=== PATIENT | male | born 1960 | race Caucasian/White ===

== ENCOUNTER → 2020-02-08 09:30 | Outpatient (CLI) | payer BC, MEDICAID, SELFPAY ==
[2020-02-08 13:09] LABS: Coronavirus 19 IgG Antibody Negative (Negative); Coronavirus 19 IgM Antibody Negative (Negative)
== END ==
PROVIDERS: Visit Provider Internal Medicine Gastroenterology
DX: Z01.818 Encounter for other preprocedural examination (principal)
CPT/HCPCS: 36415; 86328

== ENCOUNTER 2020-02-11 12:12 | Day surgery (SDC) | payer BC, MEDICAID, SELFPAY ==
[2020-02-06 11:03] VITALS: BMI 30.9
[2020-02-11] VITALS (10 sets, daily range): BP systolic 82–113; BP diastolic 49–74; PULSE 106–130; RESP 12–22; TEMP 36.1–36.7; O2SAT 94–100
--- NOTE | 2020-02-11 13:44 | P.PN_ITS ---
[facility] Anesthesia Checklist - Patient Identification Patient Identification: Arm Band - Structural Data Admitted From: Home Planned Operative Procedure/s: colonoscopy Consent for Planned Operative Procedure(s) Verified: Yes Verified Documents: Surgical Consent, History and Physical - NPO Status Verified Time NPO: 00:00 - Additional verifications Anesthesia Reactions: No - Airway Assessment C-Spine Mobility Assessed: Yes (mp2) TMJ Mobility Assessed: Yes Dentition: Poor Dentition - Neurological Assessment Level of Consciousness: Awake, Alert - Anesthesia Plan Anesthesia Risk discussed: Yes Anesthesia Plan: Verified ASA Class: III Anesthesia Type: MAC [facility] History I have reviewed the patient's past medical history: Yes Medical History: Reports:: Gastroesophageal Reflux Disease(GERD) Denies:: Cancer, Diabetes Mellitus Type 1, Diabetes Mellitus Type 2, Internal Pacemaker, MRSA, Seizures *Have you ever received a pneumonia vaccine?: No *Have you received a flu vaccine this season?: No Other Medical History: Reports: Liver Disease Anesthesia experience/problems:: nac Other Surgeries: Yes: Cholecystectomy. No: Pacemaker Amputation: No Fractures: No - *Social History Smoking Status: Current every day smoker Tobacco Type: smokeless tobacco # Packs/Day (cigarettes): 1 Alcohol Intake: current Substance Use Type: denies use *Occupational Status:: employed Housing: house Household Members: spouse *Travel in the last 8 weeks: None Family Hx:: No significant family history
--- NOTE | 2020-02-11 13:54 | P.PCN_ITS ---
[facility] Procedure Note Procedure Note:: Attempted colonoscopy Procedure Report: Sigmoidoscopy Endoscopist: Jewel Higginbotham II, MD Referring physician: Ian Harris MD Date of Procedure: February 11, 2020 Equipment: Olympus 180 variable stiffness pediatric colonoscope Sedation: MAC sedation Indication: Mr. Livingston is a 59-year-old gentleman with abnormal weight loss. He also has had longstanding alcohol abuse and was drinking up to 10 beers daily. His EGD on September 27, 2019 showed distal esophageal varices (grade 0?1). He also had a Schatzki's ring that was dilated up to 18 mm. His subsequent lab work showed normal platelets but he did have borderline anemia (hemoglobin 12.1 and hematocrit 35.2). His ALT level 75 and AST level 98 would confirm hepatocellular injury from alcohol. His fibrosis panel was equivocal. The patient did have an elevated ammonia level (75) and his ferritin level was 2202. His INR was slightly elevated at 1.21. The patient states that he stopped drinking 1 week ago. He has recently had lower abdominal pain in the pelvis. He has had some increased abdominal girth. He reports no rectal bleeding. He does have easy bruising and ecchymoses on his arms. He does not know his family history (adopted). This is his first colonoscopy. Procedure: Prior to the procedure, a history and physical exam was performed, and patient's medications and allergies were reviewed. The risks, benefits and alternatives of the sedation and procedure were discussed with the patient. All questions were answered and informed consent was obtained. The patient was brought to the procedure room. Patient identification and proposed procedure were verified by the physician and the nurse. The patient was placed in a left lateral decubitus position and the scope was passed under direct vision. Throughout the procedure, the patient's blood pressure, pulse, and oxygen saturations were monitored continuously. The colonoscopy was accomplished without difficulty. The patient tolerated the procedure well. Findings: On digital rectal examination there was normal rectal tone. The scope was then inserted through the anal canal into the rectum and advanced to 55 cm. This was into the descending colon near the splenic flexure. Unfortunately, the scope could not be advanced further due to very poor bowel preparation with brown liquid stool and impaired visualization of the colonic mucosa. Upon withdrawal, the preparation was poor but there was evidence of sigmoid diverticulosis. There were a couple of polyps identified but not removed because of the poor bowel preparation. There were grade 1-2 internal hemorrhoids. Impression: 1. Poor bowel preparation 2. Left-sided diverticulosis 3. Sigmoid colon polyps x2 Plan: This patient appears to have ascites and may be going into liver failure. He has not truly been abstinent from alcohol. I am going to recommend liver protocol CT scan of the abdomen as well as possible paracentesis (diagnostic and therapeutic). I would like to obtain alpha-fetoprotein and hereditary hemochromatosis genetic assay today. The patient does have 2+ edema. I am going to start spironolactone. He will need close follow-up. I would consider repeat screening colonoscopy when he is clinically tuned up and when we evaluate for liver failure further. He must maintain alcohol abstinence.
[2020-02-11 14:30] LABS: Blood Urea Nitrogen 3 mg/dl (9-20); Creatinine Clearance Estimated 200 mL/min (50-200); Estimated Glomerular Filt Rate 138 ml/min (>60); GFR (African American) 167 ML/MIN (>60)
--- NOTE | 2020-02-11 14:39 | CT_ITS ---
PROCEDURE: CT ABDOMEN PELVIS W CON CLINICAL INDICATION: liver failure, cirrhosis COMPARISON: No exams were available for comparison TECHNIQUE: IV Contrast: 75ML OPTIRAY 350 Oral Contrast None Axial images obtained with sagittal and coronal reformats. All CT scans at the facility use one or more dose reduction, viz: automated exposure control, ma/kV adjustment per patient size (including targeted exams where dose is matched to indication, i.e. head), or iterative reconstruction technique. FINDINGS: LOWER THORAX: There are mild atelectatic changes in the lung bases. Coronary artery calcifications are present. ABDOMEN & PELVIS: There is diffuse fatty liver infiltration. Prior cholecystectomy there is perihepatic and perisplenic fluid noted. Small amount fluid is present along the anterior aspect of the body of the stomach. Pneumoperitoneum is noted. The adrenal glands pancreas, and kidneys have an unremarkable appearance. Mildly distended fluid-filled loops of large and small bowel are noted. There is a small umbilical hernia which contains fat. There is some haziness of the fat and there is a small amount of free air noted within the hernia. There is haziness of the central mesenteric fat. There is increased soft tissue density anterior to the aortic bifurcation with scattered foci of gas. This soft tissue density may even be fluid. There is thickening of the colon involving the sigmoid colon. The urinary bladder is thickened. Just along the superior aspect of the urinary bladder there is a fluid collection containing gas suspicious for a small developing abscess. This measures approximately cm and could even be an intramural abscess of the urinary bladder wall. Phlegmonous changes are present in the upper pelvic region posteriorly. There is diverticulosis of the sigmoid colon. IMPRESSION: 1. There is thickened sigmoid colon consistent with colitis with phlegmonous changes in the pelvic region and suggestion of a developing small pelvic abscess with scattered small collections of air and fluid in the pelvis. These findings may be sequela from perforated diverticulitis. There is some distant free air is well underneath the hemidiaphragm and in the portal region. No portal venous gas. Fluid-filled loops of small and large bowel are present consistent with ileus 2. There is diffuse fatty liver infiltration with a small amount of ascites 3. Other nonacute findings as described above. 4. Dr. Higginbotham was notified by telephone of these findings 02/11/2020 at 5:20 p.m. Dictated by: David Morales MD 02/11/2020 17:48 Electronically signed by David Morales MD in [place] 02/11/2020 17:48
== END 2020-02-11 16:10 | disposition home or self-care (01) ==
LOC: OUTP 12:17
PROVIDERS: PCP Family Medicine; Visit Provider Internal Medicine Gastroenterology
PROC: 0DJD8ZZ Inspection of Lower Intestinal Tract, Via Natural or Artificial Opening Endoscopic (ICD-10-PCS; CPT 45330; principal; 2020-02-11 13:00)
DX: Z87.19 Personal history of other diseases of the digestive system (principal); K57.30 Diverticulosis of large intestine without perforation or abscess without bleeding; K63.5 Polyp of colon; Z91.19 Patient's noncompliance with other medical treatment and regimen; R63.4 Abnormal weight loss; Z68.31 Body mass index [BMI] 31.0-31.9, adult; F10.10 Alcohol abuse, uncomplicated; K76.9 Liver disease, unspecified; K21.9 Gastro-esophageal reflux disease without esophagitis; Z72.0 Tobacco use; Z79.899 Other long term (current) drug therapy
CPT/HCPCS: 45330; 36415; 74177; 81256; 82105; 82565; 84520; Q9967

== ENCOUNTER 2020-02-11 19:13 | Emergency (ER) | payer BC, MEDICAID, SELFPAY ==
[2020-02-11] VITALS (7 sets, daily range): BP systolic 96–106; BP diastolic 54–68; PULSE 15–125; RESP 12–17; TEMP 36.6–36.9; O2SAT 94–97; BMI 30.9
--- NOTE | 2020-02-11 19:18 | HMH.EDGENADL ---
ED Disposition Clinical Impression: Perforation of sigmoid colon due to diverticulitis, Abdominal abscess, Septic shock Abdominal pain Qualifiers: Abdominal location: lower abdomen, unspecified Qualified Code(s): R10.30 - Lower abdominal pain, unspecified Disposition: Xfer Short-Term Hosp Condition on Discharge: Critical Instructions: DI for Acute Abdomen Referrals: Ian Harris [Primary Care Provider] - Time of Disposition: 20:45 - Critical Care Critical Care Time: Yes Attestation: On , the high probability of a clinically significant, sudden or life threatening deterioration of the following system(s) required my full and direct attention, intervention and personal management. The time I documented below is in addition to time spent performing reported procedures but includes the following listed in this critical care notation. Total Critical Care Time: 45 Vital system(s) involved:: Shock (Septic) My critical care processes included: Assessment & monitoring of V/S, Initial and Re-exams, Data Review/Interpretation, Coordinating Care, Medication Orders and management, Documentation Medical Decision Making - Medical Records MR Comment: 59-year-old male with a history of alcoholism, liver disease with cirrhosis, esophageal varices, and most recently lower abdominal pain was found to have an acute sigmoid diverticulitis with perforation and abscess today. He was sent here from his supervisor cytogenetic laboratory, Dr. Higginbotham after colonoscopy. On arrival he is completely alert and oriented, blood pressure stable, he is tachycardic to 130, it is unclear if this is from his illness and/or acute alcohol withdrawal. His abdomen is distended, but he does not complain of any shortness of breath or chest pain. CT was done earlier today showing a small developing abscess and small collections of air and fluid in the pelvis from a perforated sigmoid diverticulitis. Also some distant free air under the hemidiaphragm. He has fluid-filled loops of small and large bowel consistent with ileus. This explains the majority of the patient's findings at this time, he is tender to palpation in the left lower quadrant. Given his overall status, will obtain labs including liver panel and coags, give bolus of fluids and Zosyn and reassess. Reassessment, patient remains hemodynamically stable but is critically ill with septic shock. His white count is 25, lactate is 4, his meld score is 28. Spoke with surgery here about the possibility of admission, however he will need to be transferred because of the possibility of complications if he were to require surgery with his liver disease. [facility], [facility], and [place] are all contacted and do not have beds available and cannot accept the transfer. We have spoken to [facility] and he will be transferred for higher level of care. this was explained to him and his questions were answered. We had a long discussion about his status. He will go by helicopter given sepsis and overall status and potential to deteriorate. He remains stable but critical at this time. - Srinivasa Inquiry Pt receiving controlled substance: No Vital Signs: 02/11/20 19:24 02/11/20 19:30 02/11/20 20:00 Temperature 98.5 F Temperature Source Oral Pulse Rate [Right Brachial] 125 H 123 H 119 H Respiratory Rate 16 17 17 Blood Pressure [Right Arm] 106/68 L 96/67 L 102/60 L Blood Pressure Mean [Right Arm] 80 76 74 Blood Pressure Source [Right Arm] Automatic Cuff Automatic Cuff Automatic Cuff Blood Pressure Position [Right Arm] Sitting Supine Supine 02 Sat by Pulse Oximetry 97 94 L 95 Oxygen Delivery Method Room Air Room Air Room Air 02/11/20 20:28 Temperature Temperature Source Pulse Rate [Right Brachial] 118 H Respiratory Rate 16 Blood Pressure [Right Arm] 101/58 L Blood Pressure Mean [Right Arm] 72 Blood Pressure Source [Right Arm] Automatic Cuff Blood Pressure Position [Right Arm] Sit
--- NOTE | 2020-02-11 19:33 | ECG_ITS ---
APPROVED REPORT Exam: Resting ECG HR:122 bpm ECG Measurements Heart Rate 122 AXES SD 146 P 39 QRSd 104 QRS 99 QT 338 T -7 QTc 481 <Conclusion> Sinus tachycardia with occasional premature ventricular complexes Rightward axis Incomplete RBBB Abnormal ECG Electronically signed by : Karsten Roth, 02/12/2020 15:34:55
[2020-02-11 19:46] LABS: Basophils # 0.1 K/mm3 (0-0.2); Basophils % 0.4 % (0.1-2.0); Eosinophils % 0.1 % (0.1-12.0); Hematocrit 39.4 % (42.0-52.0); Hemoglobin 12.9 g/dL (14.1-18.0); Lymphocytes # 1.4 K/mm3 (0.7-4.5); Lymphocytes % 5.5 % (10-50); Mean Corpuscular HGB Conc 32.7 g/dL (31.8-35.4); Mean Corpuscular Hemoglobin 30.6 pg (27.0-31.2); Mean Corpuscular Volume 93.6 fl (80-94); Mean Platelet Volume 8.4 fl (7.4-10.4); Monocytes # 1.8 K/mm3 (0.1-1.0); Monocytes % 7.1 % (1.7-9.3); Neutrophils # 21.7 K/mm3 (1.8-7.8); Neutrophils % 86.8 % (37.0-80.0); Platelet Count 248 K/mm3 (142-424); Red Blood Count 4.21 M/mm3 (4.60-6.20); White Blood Count 24.9 K/mm3 (4.8-10.8)
[2020-02-11 19:47] LABS: Chloride 90 mmol/L (98-107); Potassium 3.7 mmoL/L (3.5-5.1); Sodium 132 mmol/L (136-145)
[2020-02-11 19:50] LABS: Alanine Aminotransferase 54 U/L (12-78); Albumin Level 2.2 g/dl (3.5-5.0); Albumin/Globulin Ratio 0.5 (1.1-1.8); Alkaline Phosphatase 164 U/L (38-126); Ammonia 19 umol/L (9-30); Anion Gap 21.7 mEq/L (5-15); Aspartate Amino Transferase 51 U/L (17-59); Blood Urea Nitrogen 19 mg/dl (9-20); Calcium 7.7 mg/dl (8.4-10.2); Carbon Dioxide 24 mmol/L (22.0-30.0); Globulin 4.4 g/dL (1.3-3.2); Glucose 56 mg/dl (74-100); MANUAL DIFFERENTIAL MANUAL DIFFERENTIAL (MANUAL DIFF); Total Protein,Serum 6.6 g/dl (6.3-8.2)
[2020-02-11 19:53] LABS: Lactic Acid 4.2 mmol/L (0.7-2.1)
--- NOTE | 2020-02-11 19:55 | PC.NURSE ---
paged dr doherty
[2020-02-11 19:57] LABS: Creatinine Clearance Estimated 52 mL/min (50-200); Estimated Glomerular Filt Rate 29 ml/min (>60); GFR (African American) 35 ML/MIN (>60)
[2020-02-11 20:04] LABS: Lymphocytes % 9 % (10-50); Monocytes % 7 % (2-9); Neutrophils % 82 % (42-76); Platelet Estimate Normal; Total Cells Counted 100
[2020-02-11 20:05] LABS: RBC Morphology Normal
--- NOTE | 2020-02-11 20:13 | PC.NURSE ---
waiting on inr result for md to contact surgeon again
[2020-02-11 20:14] LABS: INR 2.12 (0.9-1.1); Prothrombin Time 20.8 seconds (9.4-11.8)
--- NOTE | 2020-02-11 20:14 | PC.NURSE ---
call out for dr doherty
--- NOTE | 2020-02-11 20:21 | INFXCTL.NOTE ---
calling [facility] at this time. awaiting for surgeon real estate listing consultant.
--- NOTE | 2020-02-11 20:22 | PC.NURSE ---
calling [facility] at this time. awaiting for surgeon customer care voice consultant
--- NOTE | 2020-02-11 20:24 | PC.NURSE ---
dr. fontaine speaking to dr. freeman at this time
--- NOTE | 2020-02-11 20:28 | PC.NURSE ---
at refuses patient at this time due to diversion. call placed to [facility]
--- NOTE | 2020-02-11 20:29 | PC.NURSE ---
denied transfer. [facility]. they have no icu beds at this time.
--- NOTE | 2020-02-11 20:31 | PC.NURSE ---
calling [facility] at this time.
--- NOTE | 2020-02-11 20:33 | PC.NURSE ---
[facility] does not have any beds at this time.
--- NOTE | 2020-02-11 20:35 | PC.NURSE ---
call placed to dr doherty again
[2020-02-11 20:38] LABS: ABG PH 7.35 mmol/L (7.35-7.45); ABG PO2 56.7 mmhg (80-100); Oxygen 21 %
--- NOTE | 2020-02-11 20:38 | PC.NURSE ---
calling [facility] at this time.
[2020-02-11 20:39] LABS: ABG Base Excess -3.6 mmol/L (-2.4-2.3); ABG Oxygen Saturation 84 % (90-100); ABG TCO2 23.2 mmhg (23-27)
[2020-02-11 20:44] LABS: Activated Partial Thrombo Time 35.2 seconds (23.6-34.0)
--- NOTE | 2020-02-11 20:44 | PC.NURSE ---
dr. fontaine on the phone with general surgery at at this time.
--- NOTE | 2020-02-11 20:45 | PC.NURSE ---
doesn't have no icu beds at this time. will be possibly put onto a waiting list. calling [facility] at this time.
--- NOTE | 2020-02-11 20:51 | PC.NURSE ---
dr. vines accepted pt to . awaiting call back for possible bed placement.
--- NOTE | 2020-02-11 20:55 | PC.NURSE ---
dr. peterson from [facility] accepted pt to er. awaiting to speak to er at this time.
--- NOTE | 2020-02-11 21:00 | PC.NURSE ---
pt will be going to [facility]. awaiting on flight confirmation at this time,
--- NOTE | 2020-02-11 21:04 | PC.NURSE ---
flight confirmed with [facility] 10 mins.
--- NOTE | 2020-02-11 21:41 | PC.NURSE ---
report given marcelo at [facility]. report given to [employer] at this time.
== END 2020-02-11 21:56 | disposition short-term general hospital (02) ==
PROVIDERS: Emergency Provider Emergency Medicine; PCP Family Medicine
DX: K57.20 Diverticulitis of large intestine with perforation and abscess without bleeding (principal); A41.9 Sepsis, unspecified organism; K21.9 Gastro-esophageal reflux disease without esophagitis; F17.290 Nicotine dependence, other tobacco product, uncomplicated; K70.9 Alcoholic liver disease, unspecified; K74.60 Unspecified cirrhosis of liver; I85.10 Secondary esophageal varices without bleeding
CPT/HCPCS: 36415; 80053; 82140; 82803; 83605; 85007; 85025; 85610; 85730; 86850; 87040; 93005; 96365; 96366; 96367; 96375; 99285; J2405; J2543